=== PATIENT | female | born 1945 | race Caucasian/White ===

== ENCOUNTER 2018-06-16 11:17 | Emergency (ER) | payer MEDICARE ==
[2018-06-16] MEDS ORDERED: ACETAMINOPHEN 325 MG TAB ONE (11:32)
== END 2018-06-16 11:53 | disposition home or self-care (01) ==
LOC: EDH 11:17
DX: S93.504A Unspecified sprain of right lesser toe(s), initial encounter (principal); I10 Essential (primary) hypertension; W22.03XA Walked into furniture, initial encounter; Y93.89 Activity, other specified; Y92.098 Other place in other non-institutional residence as the place of occurrence of the external cause; Y99.8 Other external cause status
CPT/HCPCS: 73660